=== PATIENT | male | born 1970 | race Caucasian/White ===

== ENCOUNTER 2019-02-26 22:16 | Inpatient (IN) | payer OTHER, MEDICAID ==
[~2019-02-26] VITALS: Ht 167.6 cm; Wt 90.3 kg
[2019-02-26] MEDS ORDERED: SODIUM CHLORIDE 0.9% 1,000 ML IV ONE (22:31)
[2019-02-26 23:13] LABS: CLARITY URINE CLEAR (CLEAR); COLOR URINE YELLOW (YELLOW); KETONES URINE NEGATIVE (NEGATIVE); LEUKOCYTE ESTERASE URINE NEGATIVE (NEGATIVE); NITRITE URINE NEGATIVE (NEGATIVE); OCCULT BLOOD URINE 1+ (NEGATIVE); PH URINE 5.5 (4.5-8.0); PROTEIN URINE 4+ (NEGATIVE); SPECIFIC GRAVITY URINE 1.017 (1.005-1.030); UROBILINOGEN URINE 0.2 E.U./dL (0.2-1.0)
[2019-02-26 23:36] LABS: BASOPHILS % 0.8 % (0.0-2.0); EOSINOPHILS % 5.2 % (0.0-5.0); HEMATOCRIT. 28.3 % (42.0-52.0); HEMOGLOBIN. 9.8 g/dL (14.0-18.0); LYMPHOCYTES % 30.9 % (20.0-50.0); MEAN CORPUSCULAR VOLUME 83.9 fL (80.0-94.0); MEAN PLATELET VOLUME 8.9 fl (7.4-10.4); MONOCYTES % 7.2 % (2.0-8.0); NEUTROPHILS % 55.9 % (40.0-76.0); PLATELET 221 x1000/uL (130-400); RED BLOOD CELL COUNT 3.37 mill/uL (4.7-6.1); RED CELL DISTRIBUTION WIDTH 13.8 % (11.6-14.6)
[2019-02-26 23:43] LABS: CHLORIDE 112 mEq/L (98-107)
[2019-02-26 23:46] LABS: ETHANOL BLOOD < 10 mg/dL
[2019-02-27] VITALS (11 sets, daily range): BP systolic 115–163; BP diastolic 54–88
[2019-02-27] MEDS ORDERED: ATROPINE SULFATE 1MG/10ML SYR IV ONE (01:45)
[2019-02-27] MEDS ORDERED: DEXTROSE 50% WATER 50ML SYRINGE IV PRN (05:15)
[2019-02-27] MEDS ORDERED: ATROPINE SULFATE 1MG/10ML SYR IV PRN (05:30)
[2019-02-27] MEDS: BLOOD SUGAR DIAGNOSTIC STRIP TEST SCH ×4 (06:02→21:23)
[2019-02-27 06:55] LABS: *AMPHETAMINES SCREEN URINE NEGATIVE (NEGATIVE); *BARBITURATES SCREEN URINE NEGATIVE (NEGATIVE); *BENZODIAZEPINES SCREEN URINE NEGATIVE (NEGATIVE); *COCAINE SCREEN URINE NEGATIVE (NEGATIVE); METHADONE URINE SCREEN NEGATIVE (NEGATIVE); OPIATES URINE SCREEN NEGATIVE (NEGATIVE); PHENCYCLIDINE URINE SCREEN NEGATIVE (NEGATIVE)
[2019-02-27 06:56] LABS: CANNABINOID URINE SCREEN NEGATIVE (NEGATIVE)
[2019-02-27] MEDS: INSULIN LISPRO 100 UNITS/ML SUBCUT SCH ×4 (07:20→21:00)
[2019-02-27] MEDS ORDERED: ASPI-1159 PO (08:17)
[2019-02-27] MEDS ORDERED: GLIM2TAB2 PO (08:18)
[2019-02-27] MEDS ORDERED: ATOR40TA70 PO (08:18)
[2019-02-27] MEDS ORDERED: HYDR25TA PO (08:19)
[2019-02-27] MEDS ORDERED: AMLO10TA80 PO (08:20)
[2019-02-27] MEDS ORDERED: GLIM4TAB2 PO (08:21)
[2019-02-27] MEDS ORDERED: PIOG15TA6 PO (08:22)
[2019-02-27] MEDS ORDERED: CHOL20004 PO (08:24)
[2019-02-27] MEDS ORDERED: ENOXAPARIN 40MG/0.4ML SYR SUBCUT SCH (09:00)
[2019-02-27] MEDS ORDERED: HYDRALAZINE 20MG/ML VIAL IV PRN (09:30)
[2019-02-27 12:13] LABS: T4 FREE 1.1 ng/dL (0.76-1.46)
[2019-02-27 13:29] LABS: CREATINE KINASE MB FRACTION 3.6 ng/mL (0.5-3.6)
[2019-02-28] VITALS (10 sets, daily range): BP systolic 116–162; BP diastolic 40–94
[2019-02-28 00:05] LABS: CREATINE KINASE MB FRACTION 2.6 ng/mL (0.5-3.6)
[2019-02-28] MEDS: BLOOD SUGAR DIAGNOSTIC STRIP TEST SCH ×4 (06:18→20:49)
[2019-02-28] MEDS: INSULIN LISPRO 100 UNITS/ML SUBCUT SCH ×4 (06:18→20:59)
[2019-02-28 06:20] LABS: CREATINE KINASE MB FRACTION 2.6 ng/mL (0.5-3.6)
[2019-02-28 06:24] LABS: BASOPHILS % 0.5 % (0.0-2.0); EOSINOPHILS % 4.9 % (0.0-5.0); HEMATOCRIT. 28.3 % (42.0-52.0); HEMOGLOBIN. 9.5 g/dL (14.0-18.0); LYMPHOCYTES % 41.7 % (20.0-50.0); MEAN CORPUSCULAR HEMOGLOBIN 28.6 pg (28.0-32.0); MEAN CORPUSCULAR VOLUME 84.9 fL (80.0-94.0); MEAN PLATELET VOLUME 9.1 fl (7.4-10.4); MONOCYTES % 7.4 % (2.0-8.0); NEUTROPHILS % 45.5 % (40.0-76.0); PLATELET 216 x1000/uL (130-400); RED BLOOD CELL COUNT 3.33 mill/uL (4.7-6.1); RED CELL DISTRIBUTION WIDTH 14.1 % (11.6-14.6)
[2019-02-28] MEDS ORDERED: CEFAZOLIN 1000MG PREMIX 50 ML IV ONE ×2 (07:16→07:27)
[2019-02-28] MEDS ORDERED: IODIXANOL 320MG/ML 100 ML BOTTLE IV ONE (07:42)
[2019-02-28] MEDS ORDERED: FENTANYL CITRATE/PF 50MCG/ML 2ML VIAL ONE (07:56)
[2019-02-28] MEDS ORDERED: MIDAZOLAM HCL 2 MG/2 ML VIAL ONE (07:56)
[2019-02-28] MEDS ORDERED: PROPOFOL 10MG/ML 100ML 100 ML IV ONE (07:58)
[2019-02-28] MEDS ORDERED: GENTAMICIN/NS IRRIGATION 500 ML IR ONE (08:02)
[2019-02-28] MEDS ORDERED: GENTAMICIN SULF 40MG/ML 2ML VIAL ONE (08:02)
[2019-02-28] MEDS ORDERED: LIDOCAINE HCL 1% 20ML VIAL (Pyxis) INJ ONE (08:02)
[2019-02-28] MEDS ORDERED: GLYCOPYRROLATE 0.2 MG/ML 2ML VIAL ONE (08:12)
[2019-02-28] MEDS ORDERED: FENTANYL CITRATE/PF 50MCG/ML 2ML VIAL IV PRN (08:45)
[2019-02-28] MEDS ORDERED: HYDROMORPHONE HCL/PF 2MG/ML CPJ IV PRN (08:45)
[2019-02-28] MEDS ORDERED: MEPERIDINE HCL/PF 25MG/ML CPJ IV PRN (08:45)
[2019-02-28] MEDS ORDERED: MORPHINE SULFATE 4 MG/ML CPJ (NOT FOR IM USE) IV PRN (08:45)
[2019-02-28] MEDS ORDERED: ONDANSETRON HCL 4MG/2ML INJ IV PRN (08:45)
[2019-02-28] MEDS ORDERED: FUROSEMIDE 20MG/2ML VIAL ONE (08:50)
[2019-02-28] MEDS ORDERED: HYDROCODONE/ACETAMINOPHEN 5/325MG TABLET PO PRN (09:30)
[2019-02-28] MEDS: HYDRALAZINE HCL 50MG TABLET PO SCH ×3 (12:55→22:06)
[2019-02-28] MEDS: METOPROLOL TARTRATE 25MG TABLET PO SCH (20:50)
[2019-02-28] MEDS: ACETAMINOPHEN 650MG/20.3ML UDC PO PRN (22:06)
[2019-03-01] VITALS (7 sets, daily range): BP systolic 127–157; BP diastolic 62–91
[2019-03-01] MEDS: HYDRALAZINE HCL 50MG TABLET PO SCH (05:32)
[2019-03-01] MEDS: ACETAMINOPHEN 650MG/20.3ML UDC PO PRN (05:32)
[2019-03-01] MEDS: BLOOD SUGAR DIAGNOSTIC STRIP TEST SCH ×2 (05:53→11:50)
[2019-03-01] MEDS: INSULIN LISPRO 100 UNITS/ML SUBCUT SCH ×2 (05:53→12:20)
[2019-03-01 07:10] LABS: BASOPHILS % 0.8 % (0.0-2.0); EOSINOPHILS % 5.6 % (0.0-5.0); HEMATOCRIT. 28.9 % (42.0-52.0); HEMOGLOBIN. 9.9 g/dL (14.0-18.0); LYMPHOCYTES % 32.5 % (20.0-50.0); MEAN CORPUSCULAR HEMOGLOBIN 28.6 pg (28.0-32.0); MEAN CORPUSCULAR VOLUME 83.5 fL (80.0-94.0); MEAN PLATELET VOLUME 9.4 fl (7.4-10.4); MONOCYTES % 7.7 % (2.0-8.0); NEUTROPHILS % 53.4 % (40.0-76.0); PLATELET 233 x1000/uL (130-400); RED BLOOD CELL COUNT 3.46 mill/uL (4.7-6.1); RED CELL DISTRIBUTION WIDTH 13.7 % (11.6-14.6)
[2019-03-01 08:01] LABS: PHOSPHORUS 4.4 mg/dL (2.5-4.9)
[2019-03-01] MEDS ORDERED: METO25TA6 PO (08:05)
[2019-03-01] MEDS: METOPROLOL TARTRATE 25MG TABLET PO SCH (08:07)
[2019-03-01] MEDS ORDERED: HYDR-4135 PO (08:08)
[2019-03-01 13:15] LABS: *CREATININE RANDOM URINE 76.4 mg/dL (Not Estab.); MICROALBUMIN RANDOM URINE 3116.2 ug/mL (Not Estab.)
== END 2019-03-01 12:15 | disposition home or self-care (01) | DRG 171 ==
LOC: ER 22:40 → 3WST 02-27 02:30 → ENRESERV 02-27 02:51
PROVIDERS: ADMIT Family Medicine; ATTEND Family Medicine
PROC: 02H63JZ Insertion of Pacemaker Lead into Right Atrium, Percutaneous Approach (ICD-10-PCS; principal; 2019-02-28)
PROC: 0JH606Z Insertion of Pacemaker, Dual Chamber into Chest Subcutaneous Tissue and Fascia, Open Approach (ICD-10-PCS; 2019-02-28)
PROC: 02HK3JZ Insertion of Pacemaker Lead into Right Ventricle, Percutaneous Approach (ICD-10-PCS; 2019-02-28)
PROC: B5171ZZ Fluoroscopy of Left Subclavian Vein using Low Osmolar Contrast (ICD-10-PCS; 2019-02-28)
DX: I44.2 Atrioventricular block, complete (principal); E11.21 Type 2 diabetes mellitus with diabetic nephropathy; N17.9 Acute kidney failure, unspecified; N18.4 Chronic kidney disease, stage 4 (severe); E11.40 Type 2 diabetes mellitus with diabetic neuropathy, unspecified; E11.319 Type 2 diabetes mellitus with unspecified diabetic retinopathy without macular edema; E11.22 Type 2 diabetes mellitus with diabetic chronic kidney disease; I13.10 Hypertensive heart and chronic kidney disease without heart failure, with stage 1 through stage 4 chronic kidney disease, or unspecified chronic kidney disease; H54.61 Unqualified visual loss, right eye, normal vision left eye; E83.51 Hypocalcemia; D63.8 Anemia in other chronic diseases classified elsewhere; E78.5 Hyperlipidemia, unspecified; E66.9 Obesity, unspecified; H40.9 Unspecified glaucoma; H43.13 Vitreous hemorrhage, bilateral; Z83.3 Family history of diabetes mellitus; Z90.49 Acquired absence of other specified parts of digestive tract; Z68.32 Body mass index [BMI] 32.0-32.9, adult; Z79.899 Other long term (current) drug therapy; Z79.82 Long term (current) use of aspirin
CPT/HCPCS: 33208; 36415; 71045; 75820; 76770; 80048; 80061; 80305; 80320; 82043; 82306; 82330; 82550; 82553; 82570; 82962; 83036; 83735; 83880; 83970; 84100; 84300; 84439; 84443; 84484; 85379; 93005; 93306; 93970; 99285; A4565; C1785; C1892; C1893; C1898; J0461; J0690; J1580; J1815; J1940; J2250; J2704; J3010; J3490; J7030; J7050; Q9967; G0480

== ENCOUNTER 2019-03-22 03:35 | Inpatient (IN) | payer MEDICAID ==
[~2019-03-22] VITALS: Ht 167.6 cm; Wt 90.0 kg
[~2019-03-22 03:35] MED LIST: ASPI-1159 PO; ATOR40TA70 PO; CHOL20004 PO; GLIM4TAB2 PO; HYDR-4135 PO; METO25TA6 PO
[2019-03-22] MEDS ORDERED: ONDANSETRON HCL 4MG/2ML INJ IV STA (04:12)
[2019-03-22] MEDS ORDERED: MORPHINE SULFATE 4 MG/ML CPJ (NOT FOR IM USE) IV STA (04:12)
[2019-03-22] MEDS ORDERED: NITROGLYCERIN OINT 1GM/INCH UDPKT TD ONE (04:15)
[2019-03-22 04:37] LABS: BASOPHILS % 1.3 % (0.0-2.0); EOSINOPHILS % 7.5 % (0.0-5.0); HEMATOCRIT. 32.6 % (42.0-52.0); HEMOGLOBIN. 11.1 g/dL (14.0-18.0); MEAN CORPUSCULAR HEMOGLOBIN 29.2 pg (28.0-32.0); MEAN CORPUSCULAR VOLUME 85.5 fL (80.0-94.0); MEAN PLATELET VOLUME 8.8 fl (7.4-10.4); MONOCYTES % 8.2 % (2.0-8.0); PLATELET 231 x1000/uL (130-400); RED BLOOD CELL COUNT 3.81 mill/uL (4.7-6.1); RED CELL DISTRIBUTION WIDTH 13.8 % (11.6-14.6)
[2019-03-22 04:44] LABS: CHLORIDE 116 mEq/L (98-107)
[2019-03-22 08:00] VITALS: BP 178/89
[2019-03-22] MEDS ORDERED: ONDANSETRON HCL 4MG/2ML INJ IV PRN (08:15)
[2019-03-22] MEDS ORDERED: DOCUSATE SODIUM 100MG CAPSULE PO PRN (08:15)
[2019-03-22] MEDS ORDERED: CLONIDINE 0.1MG TABLET PO PRN (08:15)
[2019-03-22] MEDS ORDERED: MORPHINE SULFATE 2 MG/ML CPJ (NOT FOR IM USE) IV PRN (08:15)
[2019-03-22] MEDS ORDERED: ACETAMINOPHEN 325MG TABLET PO PRN (08:15)
[2019-03-22] MEDS ORDERED: ENOXAPARIN 40MG/0.4ML SYR SUBCUT SCH (08:15)
[2019-03-22] MEDS ORDERED: GUAIFENESIN 200MG/10ML SUGAR FREE UDC PO PRN (08:15)
[2019-03-22] MEDS ORDERED: HYDROCODONE/ACETAMINOPHEN 5/325MG TABLET PO PRN (08:15)
[2019-03-22] MEDS: AMLODIPINE 10MG TABLET PO SCH (08:40)
[2019-03-22 10:35] VITALS: BP 178/82
[2019-03-22] MEDS: ENOXAPARIN 40MG/0.4ML SYR SUBCUT SCH (11:37)
[2019-03-22] MEDS: LISINOPRIL 10MG TABLET PO SCH (11:37)
[2019-03-22 12:00] VITALS: BP 170/94
[2019-03-22] MEDS: INSULIN LISPRO 100 UNITS/ML SUBCUT SCH ×3 (12:15→20:59)
[2019-03-22] MEDS ORDERED: DEXTROSE 50% WATER 50ML SYRINGE IV PRN (12:15)
[2019-03-22] MEDS: BLOOD SUGAR DIAGNOSTIC STRIP TEST SCH ×3 (13:00→20:55)
[2019-03-22 13:20] LABS: T4 FREE 1.09 ng/dL (0.76-1.46)
[2019-03-22 16:00] VITALS: BP 179/98
[2019-03-22 20:00] VITALS: BP 151/84
[2019-03-22 22:05] LABS: CREATINE KINASE MB FRACTION 2.4 ng/mL (0.5-3.6)
[2019-03-23] VITALS: BP 120/63
[2019-03-23 04:00] VITALS: BP 149/85
[2019-03-23] MEDS: INSULIN LISPRO 100 UNITS/ML SUBCUT SCH ×2 (06:43→12:15)
[2019-03-23] MEDS: BLOOD SUGAR DIAGNOSTIC STRIP TEST SCH ×2 (06:43→11:45)
[2019-03-23 07:31] LABS: BASOPHILS % 0.9 % (0.0-2.0); EOSINOPHILS % 6.2 % (0.0-5.0); HEMATOCRIT. 31.2 % (42.0-52.0); HEMOGLOBIN. 10.5 g/dL (14.0-18.0); LYMPHOCYTES % 32.6 % (20.0-50.0); MEAN CORPUSCULAR HEMOGLOBIN 28.7 pg (28.0-32.0); MEAN CORPUSCULAR VOLUME 85.5 fL (80.0-94.0); MEAN PLATELET VOLUME 9.2 fl (7.4-10.4); MONOCYTES % 6.9 % (2.0-8.0); NEUTROPHILS % 53.4 % (40.0-76.0); PLATELET 228 x1000/uL (130-400); RED BLOOD CELL COUNT 3.64 mill/uL (4.7-6.1); RED CELL DISTRIBUTION WIDTH 13.7 % (11.6-14.6)
[2019-03-23 07:36] LABS: CHLORIDE 117 mEq/L (98-107)
[2019-03-23 07:53] LABS: CREATINE KINASE 115 IU/L (39-308); HDL CHOLESTEROL 40 mg/dL (40-59)
[2019-03-23 07:55] LABS: LDL CHOLESTEROL 93 mg/dL (5-100)
[2019-03-23 08:00] VITALS: BP 124/79
[2019-03-23] MEDS: AMLODIPINE 10MG TABLET PO SCH (09:00)
[2019-03-23] MEDS: ENOXAPARIN 40MG/0.4ML SYR SUBCUT SCH (09:02)
[2019-03-23] MEDS: LISINOPRIL 10MG TABLET PO SCH (09:03)
[2019-03-23 09:25] LABS: *AMPHETAMINES SCREEN URINE NEGATIVE (NEGATIVE); *BARBITURATES SCREEN URINE NEGATIVE (NEGATIVE); CANNABINOID URINE SCREEN NEGATIVE (NEGATIVE); PHENCYCLIDINE URINE SCREEN NEGATIVE (NEGATIVE)
[2019-03-23 09:26] LABS: *BENZODIAZEPINES SCREEN URINE NEGATIVE (NEGATIVE); *COCAINE SCREEN URINE NEGATIVE (NEGATIVE); METHADONE URINE SCREEN NEGATIVE (NEGATIVE); OPIATES URINE SCREEN PRESUMTIVE POSITIVE (NEGATIVE)
[2019-03-23] MEDS ORDERED: REGADENOSON 0.4 MG/5 ML IV NR (09:45)
[2019-03-23] MEDS ORDERED: REGADENOSON 0.4 MG/5 ML IV ONE (10:57)
[2019-03-23 12:00] VITALS: BP 180/106
[2019-03-23] MEDS ORDERED: FUROSEMIDE 40MG/4ML VIAL IVP NR (13:00)
[2019-03-23 15:48] VITALS: BP 148/84
[2019-03-23 16:00] VITALS: BP 148/84
== END 2019-03-23 16:40 | disposition home or self-care (01) | DRG 133 ==
LOC: ER 03:35 → 5WST 05:31 → EDBEDREQTM 05:36 → EDBEDREQ 05:36 → SUPCPDRO 08:00 → ENRESERV 09:52
PROVIDERS: ADMIT Hospitalist; ATTEND Hospitalist
DX: J96.00 Acute respiratory failure, unspecified whether with hypoxia or hypercapnia (principal); I44.2 Atrioventricular block, complete; E11.22 Type 2 diabetes mellitus with diabetic chronic kidney disease; E11.42 Type 2 diabetes mellitus with diabetic polyneuropathy; E11.319 Type 2 diabetes mellitus with unspecified diabetic retinopathy without macular edema; R07.89 Other chest pain; E78.00 Pure hypercholesterolemia, unspecified; E78.5 Hyperlipidemia, unspecified; H54.61 Unqualified visual loss, right eye, normal vision left eye; I50.9 Heart failure, unspecified; K21.9 Gastro-esophageal reflux disease without esophagitis; I13.0 Hypertensive heart and chronic kidney disease with heart failure and stage 1 through stage 4 chronic kidney disease, or unspecified chronic kidney disease; N18.9 Chronic kidney disease, unspecified; Z95.0 Presence of cardiac pacemaker
CPT/HCPCS: 36415; 71045; 71250; 78452; 80061; 80305; 82550; 82553; 82962; 83036; 83880; 84439; 84443; 84484; 85379; 93005; 93017; 93306; 93970; 96374; 96375; 99285; A9500; J1650; J1815; J1940; J2270; J2405; J2785

== ENCOUNTER 2019-04-04 04:44 | Inpatient (IN) | payer MEDICAID, OTHER ==
[~2019-04-04] VITALS: Ht 167.6 cm; Wt 88.5 kg
[~2019-04-04 04:44] MED LIST changes: -ASPI-1159 PO; +ASPI-1393 PO
[2019-04-04] MEDS ORDERED: NITROGLYCERIN OINT 1GM/INCH UDPKT TD ONE (05:30)
[2019-04-04] MEDS ORDERED: ASPIRIN 81MG TABLET PO ONE (05:30)
[2019-04-04 05:38] LABS: BASOPHILS % 1.8 % (0.0-2.0); EOSINOPHILS % 12.2 % (0.0-5.0); HEMATOCRIT. 31.7 % (42.0-52.0); HEMOGLOBIN. 10.5 g/dL (14.0-18.0); LYMPHOCYTES % 26.2 % (20.0-50.0); MEAN CORPUSCULAR HEMOGLOBIN 28.7 pg (28.0-32.0); MEAN CORPUSCULAR VOLUME 86.8 fL (80.0-94.0); MEAN PLATELET VOLUME 9.8 fl (7.4-10.4); MONOCYTES % 8.1 % (2.0-8.0); NEUTROPHILS % 51.7 % (40.0-76.0); PLATELET 182 x1000/uL (130-400); RED BLOOD CELL COUNT 3.66 mill/uL (4.7-6.1); RED CELL DISTRIBUTION WIDTH 14.1 % (11.6-14.6)
[2019-04-04 05:40] LABS: CHLORIDE 114 mEq/L (98-107)
[2019-04-04] MEDS ORDERED: ONDANSETRON HCL 4MG/2ML INJ IV PRN (09:00)
[2019-04-04] MEDS ORDERED: IPRATROPIUM/ALBUTEROL 0.5-3(2.5)MG/3ML NEB INH PRN (09:00)
[2019-04-04] MEDS ORDERED: KETOROLAC 15MG/ML VIAL IV PRN (09:00)
[2019-04-04] MEDS ORDERED: CLONIDINE 0.1MG TABLET PO PRN (09:00)
[2019-04-04] MEDS ORDERED: DOCUSATE SODIUM 100MG CAPSULE PO PRN (09:00)
[2019-04-04] MEDS ORDERED: MAGNESIUM/ALUMINUM HYDROXIDE/SIMETHICONE 30ML UDC PO PRN (09:00)
[2019-04-04] MEDS ORDERED: GUAIFENESIN 200MG/10ML SUGAR FREE UDC PO PRN (09:00)
[2019-04-04] MEDS ORDERED: ACETAMINOPHEN 325MG TABLET PO PRN (09:00)
[2019-04-04] MEDS ORDERED: NITROGLYCERIN 0.4MG TABLET SL SL PRN (09:00)
[2019-04-04] MEDS ORDERED: DEXTROSE 50% WATER 50ML SYRINGE IV PRN (09:00)
[2019-04-04 09:13] LABS: ETHANOL BLOOD < 10 mg/dL
[2019-04-04 09:15] LABS: LDL CHOLESTEROL 92 mg/dL (5-100)
[2019-04-04 09:18] LABS: HDL CHOLESTEROL 50 mg/dL (40-59)
[2019-04-04] MEDS: FAMOTIDINE 20MG TABLET PO SCH (10:28)
[2019-04-04] MEDS: LISINOPRIL 20MG TABLET PO SCH ×2 (10:28→20:46)
[2019-04-04] MEDS: FUROSEMIDE 40MG/4ML VIAL IVP SCH ×2 (10:30→20:41)
[2019-04-04 10:31] LABS: *AMPHETAMINES SCREEN URINE NEGATIVE (NEGATIVE); *BARBITURATES SCREEN URINE NEGATIVE (NEGATIVE); *BENZODIAZEPINES SCREEN URINE NEGATIVE (NEGATIVE); *COCAINE SCREEN URINE NEGATIVE (NEGATIVE); CANNABINOID URINE SCREEN NEGATIVE (NEGATIVE); METHADONE URINE SCREEN NEGATIVE (NEGATIVE); OPIATES URINE SCREEN NEGATIVE (NEGATIVE)
[2019-04-04 10:34] LABS: PHENCYCLIDINE URINE SCREEN NEGATIVE (NEGATIVE)
[2019-04-04] MEDS: ENOXAPARIN 40MG/0.4ML SYR SUBCUT SCH (10:34)
[2019-04-04] MEDS: GUAIFENESIN/DM 600MG/30MG ER TAB 12HR PO SCH ×2 (11:07→20:42)
[2019-04-04] MEDS: SPIRONOLACTONE 25MG TABLET PO SCH ×2 (11:07→23:19)
[2019-04-04] MEDS: BLOOD SUGAR DIAGNOSTIC STRIP TEST SCH ×3 (11:54→20:43)
[2019-04-04 13:15] VITALS: BP 169/87
[2019-04-04] MEDS: INSULIN LISPRO 100 UNITS/ML SUBCUT SCH ×3 (13:20→20:43)
[2019-04-04 15:24] LABS: CREATINE KINASE MB FRACTION 3.1 ng/mL (0.5-3.6)
[2019-04-04 15:35] VITALS: BP 169/87
[2019-04-04 16:00] VITALS: BP 152/79
[2019-04-04] MEDS: HYDRALAZINE HCL 50MG TABLET PO SCH ×2 (16:14→22:00)
[2019-04-04 20:00] VITALS: BP 108/55
[2019-04-04] MEDS ORDERED: ATORVASTATIN CALCIUM 40MG TABLET PO SCH (21:00)
[2019-04-04] MEDS ORDERED: ZOLPIDEM TARTRATE 5MG TABLET PO PRN (21:00)
[2019-04-05] VITALS: BP 137/82
[2019-04-05 04:00] VITALS: BP 139/76
[2019-04-05] MEDS: HYDRALAZINE HCL 50MG TABLET PO SCH (06:00)
[2019-04-05] MEDS: INSULIN LISPRO 100 UNITS/ML SUBCUT SCH (06:45)
[2019-04-05] MEDS: BLOOD SUGAR DIAGNOSTIC STRIP TEST SCH (06:45)
[2019-04-05 08:25] VITALS: BP 125/73
[2019-04-05] MEDS: FAMOTIDINE 20MG TABLET PO SCH (09:06)
[2019-04-05] MEDS: GUAIFENESIN/DM 600MG/30MG ER TAB 12HR PO SCH (09:06)
[2019-04-05] MEDS: SPIRONOLACTONE 25MG TABLET PO SCH (09:09)
[2019-04-05] MEDS: FUROSEMIDE 40MG/4ML VIAL IVP SCH (09:10)
[2019-04-05] MEDS: ENOXAPARIN 40MG/0.4ML SYR SUBCUT SCH (09:10)
[2019-04-05] MEDS: LISINOPRIL 20MG TABLET PO SCH (09:12)
[2019-04-05 09:40] LABS: CHLORIDE 113 mEq/L (98-107)
[2019-04-05 09:53] LABS: CREATINE KINASE MB FRACTION 1.5 ng/mL (0.5-3.6)
[2019-04-05 10:06] LABS: CREATINE KINASE 74 IU/L (39-308)
[2019-04-05] MEDS ORDERED: FURO-151 MT (11:26)
[2019-04-05 11:27] VITALS: BP 143/85
[2019-04-05 12:00] VITALS: BP 129/67
== END 2019-04-05 12:30 | disposition home or self-care (01) | DRG 194 ==
LOC: ER 04:44 → 8WST 06:33 → EDBEDREQ 06:39 → EDBEDREQTM 06:39 → ENRESERV 11:27
PROVIDERS: ADMIT Internal Medicine; ATTEND Internal Medicine
DX: I11.0 Hypertensive heart disease with heart failure (principal); J96.00 Acute respiratory failure, unspecified whether with hypoxia or hypercapnia; N17.0 Acute kidney failure with tubular necrosis; E44.1 Mild protein-calorie malnutrition; E83.51 Hypocalcemia; D63.8 Anemia in other chronic diseases classified elsewhere; E11.9 Type 2 diabetes mellitus without complications; I50.43 Acute on chronic combined systolic (congestive) and diastolic (congestive) heart failure; E78.00 Pure hypercholesterolemia, unspecified; F10.21 Alcohol dependence, in remission; Z95.810 Presence of automatic (implantable) cardiac defibrillator; Z68.31 Body mass index [BMI] 31.0-31.9, adult; Z79.82 Long term (current) use of aspirin
CPT/HCPCS: 36415; 71045; 80048; 80061; 80305; 80320; 82550; 82553; 82962; 83036; 83880; 84484; 93005; 93970; 96372; 99285; J1650; J1815; J1940; G0480

== ENCOUNTER 2019-06-16 23:34 | Inpatient (IN) | payer MEDICAID ==
[~2019-06-16] VITALS: Ht 165.1 cm; Wt 84.4 kg
[~2019-06-16 23:34] MED LIST changes: +FURO-151 MT
[2019-06-16] MEDS ORDERED: VISCOUS LIDOCAINE 2% 15 ML UDC MM STA (23:48)
[2019-06-17] MEDS ORDERED: ASPIRIN 81MG TABLET PO ONE (00:15)
[2019-06-17 00:36] LABS: BASOPHILS % 0.6 % (0.0-2.0); EOSINOPHILS % 3.1 % (0.0-5.0); HEMATOCRIT. 33.4 % (42.0-52.0); HEMOGLOBIN. 11.6 g/dL (14.0-18.0); LYMPHOCYTES % 23.3 % (20.0-50.0); MEAN CORPUSCULAR HEMOGLOBIN 28.5 pg (28.0-32.0); MEAN CORPUSCULAR VOLUME 82.1 fL (80.0-94.0); MEAN PLATELET VOLUME 8.7 fl (7.4-10.4); MONOCYTES % 6.1 % (2.0-8.0); NEUTROPHILS % 66.9 % (40.0-76.0); PLATELET 209 x1000/uL (130-400); RED BLOOD CELL COUNT 4.07 mill/uL (4.7-6.1); RED CELL DISTRIBUTION WIDTH 13.4 % (11.6-14.6)
[2019-06-17 00:47] LABS: CHLORIDE 106 mEq/L (98-107)
[2019-06-17] MEDS ORDERED: ONDANSETRON HCL 4MG/2ML INJ IV PRN (08:15)
[2019-06-17] MEDS ORDERED: ACETAMINOPHEN 325MG TABLET PO PRN (08:15)
[2019-06-17] MEDS ORDERED: IPRATROPIUM/ALBUTEROL 0.5-3(2.5)MG/3ML NEB HHN PRN (08:15)
[2019-06-17] MEDS: ASPIRIN 81MG TABLET PO SCH (09:27)
[2019-06-17] MEDS: CLONIDINE 0.1MG TABLET PO PRN (09:27)
[2019-06-17 09:55] LABS: CLARITY URINE CLEAR (CLEAR); COLOR URINE YELLOW (YELLOW); KETONES URINE NEGATIVE (NEGATIVE); LEUKOCYTE ESTERASE URINE NEGATIVE (NEGATIVE); NITRITE URINE NEGATIVE (NEGATIVE); OCCULT BLOOD URINE NEGATIVE (NEGATIVE); PH URINE 5.5 (4.5-8.0); PROTEIN URINE 3+ (NEGATIVE); SPECIFIC GRAVITY URINE 1.012 (1.005-1.030); UROBILINOGEN URINE 0.2 E.U./dL (0.2-1.0)
[2019-06-17 10:08] LABS: *AMPHETAMINES SCREEN URINE NEGATIVE (NEGATIVE); CANNABINOID URINE SCREEN NEGATIVE (NEGATIVE); PHENCYCLIDINE URINE SCREEN NEGATIVE (NEGATIVE)
[2019-06-17 10:09] LABS: *BARBITURATES SCREEN URINE NEGATIVE (NEGATIVE); *BENZODIAZEPINES SCREEN URINE NEGATIVE (NEGATIVE); *COCAINE SCREEN URINE NEGATIVE (NEGATIVE); METHADONE URINE SCREEN NEGATIVE (NEGATIVE); OPIATES URINE SCREEN NEGATIVE (NEGATIVE)
[2019-06-17] MEDS ORDERED: AMLODIPINE 5MG TABLET PO SCH (13:45)
[2019-06-17 13:56] VITALS: BP 175/86
[2019-06-17 16:00] VITALS: BP 125/80
[2019-06-17] MEDS: NEOMY SULF/BACITRAC ZN/POLY OINT 28GM TOP SCH (17:50)
[2019-06-17 20:00] VITALS: BP 152/98
[2019-06-17] MEDS: AMLODIPINE 5MG TABLET PO SCH (21:21)
[2019-06-17] MEDS: METOPROLOL TARTRATE 50MG TABLET PO SCH (21:21)
[2019-06-17] MEDS ORDERED: DEXTROSE 50% WATER 50ML SYRINGE IV PRN (23:30)
[2019-06-18] VITALS: BP 124/78
[2019-06-18 05:46] VITALS: BP 135/78
[2019-06-18] MEDS: BLOOD SUGAR DIAGNOSTIC STRIP TEST SCH ×4 (06:21→21:01)
[2019-06-18] MEDS: INSULIN LISPRO 100 UNITS/ML SUBCUT SCH ×4 (06:29→21:27)
[2019-06-18 08:00] VITALS: BP 138/83
[2019-06-18 08:59] LABS: BASOPHILS % 1.1 % (0.0-2.0); EOSINOPHILS % 6.1 % (0.0-5.0); HEMOGLOBIN. 11.1 g/dL (14.0-18.0); MEAN CORPUSCULAR HEMOGLOBIN 28.6 pg (28.0-32.0); MEAN CORPUSCULAR VOLUME 82.1 fL (80.0-94.0); MEAN PLATELET VOLUME 8.6 fl (7.4-10.4); MONOCYTES % 7.3 % (2.0-8.0); NEUTROPHILS % 45.5 % (40.0-76.0); PLATELET 207 x1000/uL (130-400); RED BLOOD CELL COUNT 3.89 mill/uL (4.7-6.1); RED CELL DISTRIBUTION WIDTH 13.3 % (11.6-14.6)
[2019-06-18] MEDS: AMLODIPINE 5MG TABLET PO SCH ×2 (09:04→21:01)
[2019-06-18] MEDS: NEOMY SULF/BACITRAC ZN/POLY OINT 28GM TOP SCH (09:05)
[2019-06-18] MEDS: METOPROLOL TARTRATE 50MG TABLET PO SCH ×2 (09:05→21:01)
[2019-06-18] MEDS: ASPIRIN 81MG TABLET PO SCH (09:05)
[2019-06-18 12:00] VITALS: BP 140/86
[2019-06-18 16:00] VITALS: BP 151/86
[2019-06-18 20:00] VITALS: BP 157/86
[2019-06-19] VITALS (7 sets, daily range): BP systolic 138–164; BP diastolic 83–89
[2019-06-19] MEDS: BLOOD SUGAR DIAGNOSTIC STRIP TEST SCH ×3 (07:00→16:52)
[2019-06-19] MEDS: INSULIN LISPRO 100 UNITS/ML SUBCUT SCH ×3 (07:00→16:58)
[2019-06-19] MEDS: NEOMY SULF/BACITRAC ZN/POLY OINT 28GM TOP SCH (09:16)
[2019-06-19] MEDS: METOPROLOL TARTRATE 50MG TABLET PO SCH (09:16)
[2019-06-19] MEDS: AMLODIPINE 5MG TABLET PO SCH (09:16)
[2019-06-19] MEDS: ASPIRIN 81MG TABLET PO SCH (09:16)
[2019-06-19] MEDS: CLONIDINE 0.1MG TABLET PO PRN (19:21)
== END 2019-06-19 19:50 | disposition home or self-care (01) | DRG 361 ==
LOC: ER 23:34 → 5WST 06-17 02:48 → EDBEDREQ 06-17 02:51 → EDBEDREQTM 06-17 02:51 → ENRESERV 06-17 12:08
PROVIDERS: ADMIT Internal Medicine; ATTEND Internal Medicine
PROC: 0HBMXZZ Excision of Right Foot Skin, External Approach (ICD-10-PCS; principal; 2019-06-17)
DX: E11.621 Type 2 diabetes mellitus with foot ulcer (principal); L97.519 Non-pressure chronic ulcer of other part of right foot with unspecified severity; E11.22 Type 2 diabetes mellitus with diabetic chronic kidney disease; E11.42 Type 2 diabetes mellitus with diabetic polyneuropathy; J68.0 Bronchitis and pneumonitis due to chemicals, gases, fumes and vapors; I25.10 Atherosclerotic heart disease of native coronary artery without angina pectoris; D64.9 Anemia, unspecified; D72.829 Elevated white blood cell count, unspecified; E11.319 Type 2 diabetes mellitus with unspecified diabetic retinopathy without macular edema; E44.1 Mild protein-calorie malnutrition; E66.9 Obesity, unspecified; E78.00 Pure hypercholesterolemia, unspecified; E78.5 Hyperlipidemia, unspecified; I12.9 Hypertensive chronic kidney disease with stage 1 through stage 4 chronic kidney disease, or unspecified chronic kidney disease; N18.4 Chronic kidney disease, stage 4 (severe); Z83.3 Family history of diabetes mellitus; Z90.49 Acquired absence of other specified parts of digestive tract; Z95.0 Presence of cardiac pacemaker; Z68.31 Body mass index [BMI] 31.0-31.9, adult; Z79.82 Long term (current) use of aspirin
CPT/HCPCS: 36415; 71045; 80048; 80305; 81003; 82962; 83880; 84484; 93005; 99285; J1815

== ENCOUNTER 2019-08-19 02:02 | Emergency (ER) | payer MEDICAID ==
[~2019-08-19] VITALS: Ht 167.6 cm; Wt 87.0 kg
[2019-08-19] MEDS ORDERED: VISCOUS LIDOCAINE 2% 15 ML UDC MM STA (02:47)
[2019-08-19] MEDS ORDERED: MAGNESIUM/ALUMINUM HYDROXIDE/SIMETHICONE 30ML UDC PO ONE (03:00)
[2019-08-19 04:00] VITALS: BP 142/94
== END 2019-08-19 04:30 | disposition home or self-care (01) ==
LOC: ER 02:02
DX: J06.9 Acute upper respiratory infection, unspecified (principal); R07.89 Other chest pain; R05 Cough; E11.9 Type 2 diabetes mellitus without complications; E78.00 Pure hypercholesterolemia, unspecified; I11.9 Hypertensive heart disease without heart failure; N28.9 Disorder of kidney and ureter, unspecified; Z90.49 Acquired absence of other specified parts of digestive tract; Z95.0 Presence of cardiac pacemaker; Z79.82 Long term (current) use of aspirin
CPT/HCPCS: 71045; 93005; 99283

== ENCOUNTER 2020-04-09 18:00 | Emergency (ER) | payer MEDICAID ==
[~2020-04-09] VITALS: Ht 165.1 cm; Wt 90.0 kg
[~2020-04-09 18:00] MED LIST changes: -ASPI-1393 PO; +ASPI-1497 PO; -GLIM4TAB2 PO; +GLIM4TAB36 PO
[2020-04-09] MEDS ORDERED: ONDANSETRON HCL 4MG/2ML INJ IV ONE (18:30)
[2020-04-09] MEDS ORDERED: CLONIDINE 0.2MG TABLET PO ONE (18:30)
[2020-04-09] MEDS ORDERED: SODIUM CHLORIDE 0.9% 500 ML IV ONE (18:30)
[2020-04-09 19:53] LABS: BASOPHILS % 0.9 % (0.0-2.0); EOSINOPHILS % 2.2 % (0.0-5.0); HEMATOCRIT. 29.7 % (42.0-52.0); HEMOGLOBIN. 10.3 g/dL (14.0-18.0); LYMPHOCYTES % 18.5 % (20.0-50.0); MEAN CORPUSCULAR HEMOGLOBIN 29.2 pg (28.0-32.0); MEAN CORPUSCULAR VOLUME 84.6 fL (80.0-94.0); MEAN PLATELET VOLUME 8.5 fl (7.4-10.4); MONOCYTES % 6.8 % (2.0-8.0); NEUTROPHILS % 71.6 % (40.0-76.0); PLATELET 404 x1000/uL (130-400); RED BLOOD CELL COUNT 3.52 mill/uL (4.7-6.1); RED CELL DISTRIBUTION WIDTH 12.9 % (11.6-14.6)
[2020-04-09 20:02] LABS: CHLORIDE 110 mEq/L (98-107)
[2020-04-09 22:34] VITALS: BP 152/92
== END 2020-04-09 23:21 | disposition home or self-care (01) ==
LOC: ER 18:00 → CANBEDREQ 04-10 01:50
DX: J06.9 Acute upper respiratory infection, unspecified (principal); Z20.828 Contact with and (suspected) exposure to other viral communicable diseases; E11.9 Type 2 diabetes mellitus without complications; E78.00 Pure hypercholesterolemia, unspecified; I11.9 Hypertensive heart disease without heart failure; Z90.49 Acquired absence of other specified parts of digestive tract; Z95.0 Presence of cardiac pacemaker; Z79.899 Other long term (current) drug therapy; Z79.82 Long term (current) use of aspirin
CPT/HCPCS: 36415; 71045; 80053; 83880; 84484; 85025; 93005; 99285; J7040; U0003; J2405

== ENCOUNTER 2021-08-07 11:21 | Inpatient (IN) | payer MEDICAID ==
[~2021-08-07] VITALS: Ht 165.1 cm; Wt 86.6 kg
[2021-08-07 13:11] LABS: BASOPHILS % 0.9 % (0.0-2.0); EOSINOPHILS % 6.4 % (0.0-5.0); HEMATOCRIT. 35.8 % (42.0-52.0); MEAN CORPUSCULAR HEMOGLOBIN 29.6 pg (28.0-32.0); MEAN CORPUSCULAR VOLUME 87.8 fL (80.0-94.0); MONOCYTES % 6.6 % (2.0-8.0); NEUTROPHILS % 54.1 % (40.0-76.0); PLATELET 233 x1000/uL (130-400); RED BLOOD CELL COUNT 4.08 mill/uL (4.7-6.1); RED CELL DISTRIBUTION WIDTH 14.2 % (11.6-14.6)
[2021-08-07 13:13] LABS: CHLORIDE 112 mEq/L (98-107)
[2021-08-07 13:23] LABS: PARTIAL THROMBOPLASTIN TIME 25.6 sec (23.4-31.0); PROTHROMBIN TIME 10.3 sec (9.6-11.0)
[2021-08-07] MEDS ORDERED: LABETALOL HCL 20MG/4ML CARPUJECT IV ONE (14:00)
[2021-08-07] MEDS ORDERED: FUROSEMIDE 40MG/4ML VIAL IVP NR (14:00)
[2021-08-07] MEDS ORDERED: HYDRALAZINE 20MG/ML VIAL IV ONE (14:00)
[2021-08-07] MEDS ORDERED: LORAZEPAM 2MG/ML CPJ IV PRN (14:15)
[2021-08-07] MEDS: AMLODIPINE 10MG TABLET PO SCH (14:15)
[2021-08-07] MEDS ORDERED: CLONIDINE 0.1MG TABLET PO PRN (14:15)
[2021-08-07] MEDS ORDERED: DOCUSATE SODIUM 100MG CAPSULE PO PRN (14:15)
[2021-08-07] MEDS ORDERED: HYDROCODONE/ACETAMINOPHEN 5/325MG TABLET PO PRN (14:15)
[2021-08-07] MEDS ORDERED: ONDANSETRON HCL 4MG/2ML INJ IV PRN (14:15)
[2021-08-07] MEDS ORDERED: ACETAMINOPHEN 650MG/20.3ML UDC GT PRN (14:15)
[2021-08-07] MEDS ORDERED: LABETALOL 5MG/ML SYR 20 MG/4 ML SYRINGE IV NR (14:30)
[2021-08-07] MEDS: METOPROLOL TARTRATE 25MG TABLET PO SCH ×2 (14:30→22:02)
[2021-08-07] MEDS ORDERED: NALOXONE HCL 0.4MG/ML VIAL IV PRN (14:30)
[2021-08-07] MEDS: CLONIDINE 0.1MG TABLET PO SCH ×2 (15:30→22:02)
[2021-08-07] MEDS: THIAMINE HCL 100MG TABLET PO SCH (15:31)
[2021-08-07] MEDS: ENOXAPARIN 30MG/0.3ML SYR SUBCUT SCH (15:31)
[2021-08-07 17:21] LABS: HEPATITIS B SURFACE AB < 3.1 mIU/mL
[2021-08-07 17:32] LABS: HEPATITIS B SURFACE ANTIGEN NEGATIVE
[2021-08-07 21:15] VITALS: BP 189/95
[2021-08-08] VITALS (18 sets, daily range): BP systolic 126–193; BP diastolic 67–123
[2021-08-08] MEDS ORDERED: CEFAZOLIN 1000MG PREMIX 50 ML IV ONE ×2 (06:30→07:16)
[2021-08-08 06:55] LABS: EOSINOPHILS % 6.2 % (0.0-5.0); HEMATOCRIT. 29.8 % (42.0-52.0); HEMOGLOBIN. 10.3 g/dL (14.0-18.0); LYMPHOCYTES % 39.8 % (20.0-50.0); MEAN CORPUSCULAR HEMOGLOBIN 30.3 pg (28.0-32.0); MEAN CORPUSCULAR VOLUME 87.7 fL (80.0-94.0); MEAN PLATELET VOLUME 9.3 fl (7.4-10.4); MONOCYTES % 6.8 % (2.0-8.0); NEUTROPHILS % 46.2 % (40.0-76.0); PLATELET 207 x1000/uL (130-400); RED CELL DISTRIBUTION WIDTH 13.7 % (11.6-14.6)
[2021-08-08 07:06] LABS: PROTHROMBIN TIME 10.7 sec (9.6-11.0)
[2021-08-08] MEDS ORDERED: LIDOCAINE HCL 1% 30ML VIAL (10MG/ML) ONE (07:17)
[2021-08-08] MEDS ORDERED: FENTANYL CITRATE/PF 50MCG/ML 2ML VIAL ONE (07:17)
[2021-08-08 07:18] LABS: PHOSPHORUS 4.6 mg/dL (2.5-4.9)
[2021-08-08] MEDS ORDERED: FENTANYL CITRATE/PF 50MCG/ML 2ML VIAL IV ONE (08:15)
[2021-08-08] MEDS: THIAMINE HCL 100MG TABLET PO SCH (08:47)
[2021-08-08] MEDS: METOPROLOL TARTRATE 25MG TABLET PO SCH ×2 (08:47→18:34)
[2021-08-08] MEDS: CLONIDINE 0.1MG TABLET PO SCH (08:47)
[2021-08-08] MEDS: AMLODIPINE 10MG TABLET PO SCH (08:47)
[2021-08-08 10:37] LABS: CLARITY URINE CLEAR (CLEAR); COLOR URINE YELLOW (YELLOW); KETONES URINE NEGATIVE (NEGATIVE); LEUKOCYTE ESTERASE URINE NEGATIVE (NEGATIVE); NITRITE URINE NEGATIVE (NEGATIVE); OCCULT BLOOD URINE TRACE (NEGATIVE); PROTEIN URINE 4+ (NEGATIVE); SPECIFIC GRAVITY URINE 1.013 (1.005-1.030); UROBILINOGEN URINE 0.2 E.U./dL (0.2-1.0)
[2021-08-08] MEDS: ENOXAPARIN 30MG/0.3ML SYR SUBCUT SCH (14:18)
[2021-08-08] MEDS: CLONIDINE 0.2MG TABLET PO SCH (21:13)
[2021-08-09] VITALS: BP_SYST 142; BP_SYST 143; BP_DIAS 76; BP_DIAS 77
[2021-08-09 04:00] VITALS: BP 139/75
[2021-08-09] MEDS ORDERED: DEXTROSE 50% WATER 50ML SYRINGE IV PRN (04:45)
[2021-08-09] MEDS: BLOOD SUGAR DIAGNOSTIC STRIP TEST SCH ×4 (06:18→20:48)
[2021-08-09 08:00] VITALS: BP 166/87
[2021-08-09] MEDS: CLONIDINE 0.2MG TABLET PO SCH ×2 (09:00→21:03)
[2021-08-09] MEDS: AMLODIPINE 10MG TABLET PO SCH (09:00)
[2021-08-09] MEDS: METOPROLOL TARTRATE 25MG TABLET PO SCH ×2 (09:00→19:02)
[2021-08-09] MEDS: THIAMINE HCL 100MG TABLET PO SCH (09:08)
[2021-08-09] MEDS: INSULIN LISPRO 100 UNITS/ML SUBCUT SCH ×4 (09:14→20:48)
[2021-08-09 12:00] VITALS: BP 185/94
[2021-08-09] MEDS ORDERED: BRIM10DR2 LEFTEYE (12:29)
[2021-08-09] MEDS: BRIMONIDINE 0.2% OPHTH DROPS 5ML LEFTEYE SCH ×2 (15:51→20:45)
[2021-08-09] MEDS: ENOXAPARIN 30MG/0.3ML SYR SUBCUT SCH (15:51)
[2021-08-09 18:00] VITALS: BP 109/82
[2021-08-09 20:00] VITALS: BP 132/80
[2021-08-10] VITALS (7 sets, daily range): BP systolic 131–186; BP diastolic 71–97
[2021-08-10] MEDS: BLOOD SUGAR DIAGNOSTIC STRIP TEST SCH ×4 (07:20→20:25)
[2021-08-10] MEDS: INSULIN LISPRO 100 UNITS/ML SUBCUT SCH ×4 (07:50→20:31)
[2021-08-10] MEDS: METOPROLOL TARTRATE 25MG TABLET PO SCH ×2 (09:00→17:00)
[2021-08-10] MEDS: CLONIDINE 0.2MG TABLET PO SCH ×2 (09:00→22:19)
[2021-08-10] MEDS: BRIMONIDINE 0.2% OPHTH DROPS 5ML LEFTEYE SCH ×2 (10:37→20:25)
[2021-08-10] MEDS: THIAMINE HCL 100MG TABLET PO SCH (10:37)
[2021-08-10] MEDS ORDERED: CLON0.2T PO (11:25)
[2021-08-10] MEDS: ENOXAPARIN 30MG/0.3ML SYR SUBCUT SCH (15:11)
[2021-08-10] MEDS: AMLODIPINE 10MG TABLET PO SCH (19:43)
[2021-08-11 00:06] VITALS: BP 129/79
[2021-08-11] MEDS ORDERED: ALTEPLASE 2MG/VIAL ITC ONE (00:45)
[2021-08-11 04:00] VITALS: BP 165/72
[2021-08-11] MEDS: BLOOD SUGAR DIAGNOSTIC STRIP TEST SCH ×2 (05:34→12:20)
[2021-08-11] MEDS: INSULIN LISPRO 100 UNITS/ML SUBCUT SCH ×2 (05:34→13:06)
[2021-08-11 08:00] VITALS: BP 143/85
[2021-08-11] MEDS: CLONIDINE 0.2MG TABLET PO SCH (09:00)
[2021-08-11] MEDS ORDERED: HEPARIN SODIUM 1,000 UNIT/1ML VIAL IV NR (09:30)
[2021-08-11] MEDS: BRIMONIDINE 0.2% OPHTH DROPS 5ML LEFTEYE SCH (10:10)
[2021-08-11 11:16] VITALS: BP 137/84
[2021-08-11] MEDS: AMLODIPINE 10MG TABLET PO SCH (11:34)
[2021-08-11] MEDS: THIAMINE HCL 100MG TABLET PO SCH (11:34)
[2021-08-11] MEDS: METOPROLOL TARTRATE 25MG TABLET PO SCH (11:34)
[2021-08-11 12:00] VITALS: BP 137/84
[2021-08-11] MEDS: ENOXAPARIN 30MG/0.3ML SYR SUBCUT SCH (15:00)
[2021-08-11 15:02] VITALS: BP 137/84
== END 2021-08-11 16:40 | disposition home or self-care (01) | DRG 470 ==
LOC: ER 11:21 → 6WST 14:31 → ENRESERV 20:28
PROVIDERS: ADMIT Internal Medicine; ATTEND Internal Medicine
PROC: 0JH63XZ Insertion of Tunneled Vascular Access Device into Chest Subcutaneous Tissue and Fascia, Percutaneous Approach (ICD-10-PCS; principal; 2021-08-08)
PROC: 02HV33Z Insertion of Infusion Device into Superior Vena Cava, Percutaneous Approach (ICD-10-PCS; 2021-08-08)
PROC: B5181ZA Fluoroscopy of Superior Vena Cava using Low Osmolar Contrast, Guidance (ICD-10-PCS; 2021-08-08)
PROC: B548ZZA Ultrasonography of Superior Vena Cava, Guidance (ICD-10-PCS; 2021-08-08)
PROC: 5A1D70Z Performance of Urinary Filtration, Intermittent, Less than 6 Hours Per Day (ICD-10-PCS; 2021-08-10)
DX: I12.0 Hypertensive chronic kidney disease with stage 5 chronic kidney disease or end stage renal disease (principal); N17.0 Acute kidney failure with tubular necrosis; E44.0 Moderate protein-calorie malnutrition; D63.8 Anemia in other chronic diseases classified elsewhere; E11.319 Type 2 diabetes mellitus with unspecified diabetic retinopathy without macular edema; N18.6 End stage renal disease; E11.22 Type 2 diabetes mellitus with diabetic chronic kidney disease; E87.8 Other disorders of electrolyte and fluid balance, not elsewhere classified; I16.0 Hypertensive urgency; E66.9 Obesity, unspecified; Z20.822 Contact with and (suspected) exposure to COVID-19; E78.00 Pure hypercholesterolemia, unspecified; Z90.49 Acquired absence of other specified parts of digestive tract; Z79.82 Long term (current) use of aspirin; Z79.899 Other long term (current) drug therapy; Z68.31 Body mass index [BMI] 31.0-31.9, adult; Z99.2 Dependence on renal dialysis
CPT/HCPCS: 36415; 36558; 71045; 76937; 77001; 80048; 80053; 81003; 82962; 83735; 83880; 84100; 84484; 85025; 86705; 86706; 86709; 86803; 87340; 87426; 93005; 99152; 99153; 99285; C1750; C1769; J0690; J1642; J1644; J1650; J1815; J1940; J3010; J3490; U0003; U0005; G0500

== ENCOUNTER 2021-10-31 06:51 | Inpatient (IN) | payer MEDICAID ==
[~2021-10-31] VITALS: Ht 162.6 cm; Wt 90.3 kg
[~2021-10-31 06:51] MED LIST changes: +BRIM10DR2 LEFTEYE; +CLON0.2T PO; -FURO-151 MT
[2021-10-31 09:02] LABS: BASOPHILS % 1.4 % (0.0-2.0); EOSINOPHILS % 8.5 % (0.0-5.0); HEMATOCRIT. 36.2 % (42.0-52.0); HEMOGLOBIN. 12.5 g/dL (14.0-18.0); LYMPHOCYTES % 34.3 % (20.0-50.0); MEAN CORPUSCULAR HEMOGLOBIN 29.5 pg (28.0-32.0); MEAN CORPUSCULAR VOLUME 85.4 fL (80.0-94.0); MEAN PLATELET VOLUME 8.3 fl (7.4-10.4); MONOCYTES % 5.9 % (2.0-8.0); NEUTROPHILS % 49.9 % (40.0-76.0); PLATELET 238 x1000/uL (130-400); RED BLOOD CELL COUNT 4.23 mill/uL (4.7-6.1); RED CELL DISTRIBUTION WIDTH 13.3 % (11.6-14.6)
[2021-10-31 09:12] LABS: INR 0.9; PROTHROMBIN TIME 10.2 sec (9.6-11.0)
[2021-10-31 09:33] LABS: CHLORIDE 105 mEq/L (98-107)
[2021-10-31] MEDS ORDERED: ACETAMINOPHEN 325MG TABLET PO PRN (18:30)
[2021-10-31] MEDS ORDERED: ONDANSETRON HCL 4MG/2ML INJ IV PRN (18:30)
[2021-10-31] MEDS: AMLODIPINE 10MG TABLET PO SCH (20:46)
[2021-11-01] VITALS (17 sets, daily range): BP systolic 132–184; BP diastolic 75–106
[2021-11-01] MEDS ORDERED: CALC667T6 PO (01:48)
[2021-11-01] MEDS ORDERED: GLIP10TA10 PO (01:48)
[2021-11-01] MEDS ORDERED: CLONIDINE 0.1MG TABLET PO PRN (02:15)
[2021-11-01] MEDS ORDERED: INSU100V34 SQ (02:35)
[2021-11-01] MEDS: AMLODIPINE 10MG TABLET PO SCH (08:27)
[2021-11-01] MEDS: CLONIDINE 0.1MG TABLET PO PRN (08:28)
[2021-11-01] MEDS ORDERED: HYDRALAZINE HCL 100MG TABLET PO NR (09:45)
[2021-11-01] MEDS ORDERED: DEXTROSE 50% WATER 50ML SYRINGE IV PRN (10:45)
[2021-11-01] MEDS: BLOOD SUGAR DIAGNOSTIC STRIP TEST SCH ×3 (11:40→21:00)
[2021-11-01] MEDS: INSULIN LISPRO 100 UNITS/ML SUBCUT SCH ×3 (12:31→21:00)
[2021-11-01] MEDS ORDERED: ALTEPLASE 2MG/VIAL ITC NR (13:00)
[2021-11-01] MEDS ORDERED: HEPARIN 1000 UNITS/ML 10ML ONE (13:30)
[2021-11-01] MEDS ORDERED: LIDOCAINE HCL 1% 20ML VIAL (Pyxis) INJ ONE (13:30)
[2021-11-01] MEDS ORDERED: CEFAZOLIN 1000MG PREMIX 50 ML IV SCH (15:00)
[2021-11-01] MEDS: HYDRALAZINE HCL 100MG TABLET PO SCH ×2 (15:54→22:00)
[2021-11-02] VITALS: BP 147/78
[2021-11-02 04:00] VITALS: BP 167/89
[2021-11-02] MEDS: CLONIDINE 0.1MG TABLET PO PRN (04:08)
[2021-11-02] MEDS: BLOOD SUGAR DIAGNOSTIC STRIP TEST SCH ×4 (06:41→20:53)
[2021-11-02] MEDS: INSULIN LISPRO 100 UNITS/ML SUBCUT SCH ×4 (06:49→20:36)
[2021-11-02] MEDS: HYDRALAZINE HCL 100MG TABLET PO SCH ×3 (06:52→21:07)
[2021-11-02 08:00] VITALS: BP 151/81
[2021-11-02] MEDS: AMLODIPINE 10MG TABLET PO SCH (09:59)
[2021-11-02 12:00] VITALS: BP 160/86
[2021-11-02 16:00] VITALS: BP 151/83
[2021-11-02 20:00] VITALS: BP 156/85
[2021-11-03] VITALS: BP 152/82
[2021-11-03] MEDS: CLONIDINE 0.1MG TABLET PO PRN (03:59)
[2021-11-03 04:00] VITALS: BP 170/88
[2021-11-03] MEDS: BLOOD SUGAR DIAGNOSTIC STRIP TEST SCH ×4 (06:09→20:29)
[2021-11-03] MEDS: HYDRALAZINE HCL 100MG TABLET PO SCH ×3 (06:09→21:17)
[2021-11-03] MEDS: INSULIN LISPRO 100 UNITS/ML SUBCUT SCH ×4 (06:09→20:29)
[2021-11-03 08:00] VITALS: BP 138/75
[2021-11-03] MEDS: AMLODIPINE 10MG TABLET PO SCH (08:39)
[2021-11-03 12:00] VITALS: BP 156/79
[2021-11-03] MEDS: ENOXAPARIN 30MG/0.3ML SYR SUBCUT SCH (14:07)
[2021-11-03 16:00] VITALS: BP 139/73
[2021-11-03] MEDS: LOSARTAN POTASSIUM 50 MG TABLET PO SCH (17:10)
[2021-11-03 20:00] VITALS: BP 158/82
[2021-11-03] MEDS ORDERED: ZOLPIDEM TARTRATE 5MG TABLET PO PRN (21:00)
[2021-11-03] MEDS: BENZONATATE 100MG CAPSULE PO PRN (21:17)
[2021-11-03] MEDS: INSULIN GLARGINE UD 100 UNITS/ML SYR SUBCUT SCH (22:11)
[2021-11-04] VITALS: BP 149/78
[2021-11-04 04:00] VITALS: BP 161/82
[2021-11-04] MEDS: BLOOD SUGAR DIAGNOSTIC STRIP TEST SCH ×4 (05:55→21:00)
[2021-11-04] MEDS: BENZONATATE 100MG CAPSULE PO PRN ×2 (06:11→13:18)
[2021-11-04] MEDS: HYDRALAZINE HCL 100MG TABLET PO SCH ×3 (06:11→21:54)
[2021-11-04] MEDS: INSULIN LISPRO 100 UNITS/ML SUBCUT SCH ×4 (06:12→21:00)
[2021-11-04 08:00] VITALS: BP 109/77
[2021-11-04] MEDS: LOSARTAN POTASSIUM 50 MG TABLET PO SCH ×2 (10:01→21:53)
[2021-11-04] MEDS: AMLODIPINE 10MG TABLET PO SCH (10:01)
[2021-11-04] MEDS: INSULIN GLARGINE UD 100 UNITS/ML SYR SUBCUT SCH ×2 (10:02→22:25)
[2021-11-04 12:00] VITALS: BP 154/73
[2021-11-04] MEDS: ENOXAPARIN 30MG/0.3ML SYR SUBCUT SCH (13:17)
[2021-11-04 16:00] VITALS: BP 137/54
[2021-11-04 20:00] VITALS: BP 154/87
[2021-11-05] VITALS: BP 159/84
[2021-11-05 04:00] VITALS: BP 141/87
[2021-11-05] MEDS: HYDRALAZINE HCL 100MG TABLET PO SCH ×3 (06:14→21:09)
[2021-11-05] MEDS: INSULIN LISPRO 100 UNITS/ML SUBCUT SCH ×4 (06:26→21:15)
[2021-11-05] MEDS: BLOOD SUGAR DIAGNOSTIC STRIP TEST SCH ×4 (06:26→21:16)
[2021-11-05 08:00] VITALS: BP 127/70
[2021-11-05] MEDS: LOSARTAN POTASSIUM 50 MG TABLET PO SCH ×2 (09:51→21:09)
[2021-11-05] MEDS: BENZONATATE 100MG CAPSULE PO PRN (09:51)
[2021-11-05] MEDS: AMLODIPINE 10MG TABLET PO SCH (09:55)
[2021-11-05] MEDS: INSULIN GLARGINE UD 100 UNITS/ML SYR SUBCUT SCH ×2 (09:56→21:38)
[2021-11-05 12:00] VITALS: BP 151/84
[2021-11-05] MEDS: ENOXAPARIN 30MG/0.3ML SYR SUBCUT SCH (13:38)
[2021-11-05 16:00] VITALS: BP 111/81
[2021-11-05 20:00] VITALS: BP 145/81
[2021-11-06] VITALS: BP 138/78
[2021-11-06 04:00] VITALS: BP 128/82
[2021-11-06] MEDS: HYDRALAZINE HCL 100MG TABLET PO SCH (05:42)
[2021-11-06] MEDS: BLOOD SUGAR DIAGNOSTIC STRIP TEST SCH ×2 (06:00→11:40)
[2021-11-06] MEDS: INSULIN LISPRO 100 UNITS/ML SUBCUT SCH ×2 (06:00→12:38)
[2021-11-06 08:00] VITALS: BP 134/69
[2021-11-06] MEDS: LOSARTAN POTASSIUM 50 MG TABLET PO SCH (08:53)
[2021-11-06] MEDS: AMLODIPINE 10MG TABLET PO SCH (08:53)
[2021-11-06] MEDS: INSULIN GLARGINE UD 100 UNITS/ML SYR SUBCUT SCH (10:50)
[2021-11-06 12:00] VITALS: BP 162/86
[2021-11-06 12:16] VITALS: BP 134/69
== END 2021-11-06 15:00 | disposition home or self-care (01) | DRG 466 ==
LOC: ER 06:51 → 7EST 16:45 → EDBEDREQ 17:05
PROVIDERS: ADMIT Internal Medicine; ATTEND Internal Medicine
PROC: 05PYX3Z Removal of Infusion Device from Upper Vein, External Approach (ICD-10-PCS; 2021-11-01)
PROC: 02HV33Z Insertion of Infusion Device into Superior Vena Cava, Percutaneous Approach (ICD-10-PCS; 2021-11-01)
PROC: B5181ZA Fluoroscopy of Superior Vena Cava using Low Osmolar Contrast, Guidance (ICD-10-PCS; 2021-11-01)
PROC: 5A1D70Z Performance of Urinary Filtration, Intermittent, Less than 6 Hours Per Day (ICD-10-PCS; principal; 2021-11-06)
DX: T82.41XA Breakdown (mechanical) of vascular dialysis catheter, initial encounter (principal); N18.6 End stage renal disease; U07.1 COVID-19; I13.2 Hypertensive heart and chronic kidney disease with heart failure and with stage 5 chronic kidney disease, or end stage renal disease; E44.0 Moderate protein-calorie malnutrition; E11.22 Type 2 diabetes mellitus with diabetic chronic kidney disease; D64.9 Anemia, unspecified; E78.00 Pure hypercholesterolemia, unspecified; Y71.2 Prosthetic and other implants, materials and accessory cardiovascular devices associated with adverse incidents; E78.5 Hyperlipidemia, unspecified; Z90.49 Acquired absence of other specified parts of digestive tract; Z95.0 Presence of cardiac pacemaker; Z99.2 Dependence on renal dialysis; Z91.15 Patient's noncompliance with renal dialysis; Y92.89 Other specified places as the place of occurrence of the external cause; Z79.899 Other long term (current) drug therapy; Z68.34 Body mass index [BMI] 34.0-34.9, adult; Z79.82 Long term (current) use of aspirin
CPT/HCPCS: 36415; 36558; 71045; 77001; 80053; 80076; 82962; 83036; 85025; 86705; 87426; 99285; C1750; C1769; J0690; J1644; J1650; J1815; J2997; J3490; J7040; U0003; U0005

== ENCOUNTER 2022-11-11 04:24 | Emergency (ER) | payer MEDICAID ==
[~2022-11-11] VITALS: Ht 165.1 cm; Wt 88.0 kg
[~2022-11-11 04:24] MED LIST changes: +CALC667T6 PO; +GLIP10TA10 PO; +INSU100V34 SQ
[2022-11-11 04:35] VITALS: BP 199/105
[2022-11-11 05:24] LABS: BASOPHILS % 1.1 % (0.0-2.0); EOSINOPHILS % 7.3 % (0.0-5.0); HEMATOCRIT. 26.4 % (42.0-52.0); HEMOGLOBIN. 9.5 g/dL (14.0-18.0); LYMPHOCYTES % 28.8 % (20.0-50.0); MEAN CORPUSCULAR HEMOGLOBIN 30.9 pg (28.0-32.0); MEAN CORPUSCULAR VOLUME 85.7 fL (80.0-94.0); MEAN PLATELET VOLUME 8.7 fl (7.4-10.4); MONOCYTES % 7.7 % (2.0-8.0); NEUTROPHILS % 55.1 % (40.0-76.0); PLATELET 219 x1000/uL (130-400); RED BLOOD CELL COUNT 3.08 mill/uL (4.7-6.1); RED CELL DISTRIBUTION WIDTH 13.7 % (11.6-14.6)
[2022-11-11 05:31] LABS: CHLORIDE 96 mEq/L (98-107)
== END 2022-11-11 14:49 | disposition left against medical advice (07) ==
LOC: ER 04:24
DX: R06.03 Acute respiratory distress (principal); N18.9 Chronic kidney disease, unspecified; Z13.9 Encounter for screening, unspecified; Z20.822 Contact with and (suspected) exposure to COVID-19
CPT/HCPCS: 36415; 70450; 71045; 80053; 83880; 84484; 85025; 87426; 93005; 99285; C9803

== ENCOUNTER 2022-12-19 15:56 | Emergency (ER) | payer MEDICAID ==
[~2022-12-19] VITALS: Ht 165.1 cm; Wt 85.0 kg
[2022-12-19 15:59] VITALS: BP 182/93
[2022-12-19 17:40] LABS: CHLORIDE 97 mEq/L (98-107)
[2022-12-19 17:43] LABS: BASOPHILS % 0.9 % (0.0-2.0); EOSINOPHILS % 7.8 % (0.0-5.0); HEMATOCRIT. 25.3 % (42.0-52.0); HEMOGLOBIN. 8.8 g/dL (14.0-18.0); LYMPHOCYTES % 17.5 % (20.0-50.0); MEAN CORPUSCULAR HEMOGLOBIN 31.3 pg (28.0-32.0); MEAN CORPUSCULAR VOLUME 90.3 fL (80.0-94.0); MEAN PLATELET VOLUME 8.5 fl (7.4-10.4); MONOCYTES % 7.6 % (2.0-8.0); NEUTROPHILS % 66.2 % (40.0-76.0); PLATELET 204 x1000/uL (130-400); RED CELL DISTRIBUTION WIDTH 15.6 % (11.6-14.6)
[2022-12-19 18:04] LABS: PROTHROMBIN TIME 10.6 sec (9.6-11.0)
== END 2022-12-19 18:53 | disposition home or self-care (01) ==
LOC: ER 15:56
DX: E11.22 Type 2 diabetes mellitus with diabetic chronic kidney disease (principal); I12.0 Hypertensive chronic kidney disease with stage 5 chronic kidney disease or end stage renal disease; N18.6 End stage renal disease; D64.9 Anemia, unspecified; Z79.899 Other long term (current) drug therapy; E78.00 Pure hypercholesterolemia, unspecified; Z90.49 Acquired absence of other specified parts of digestive tract; Z79.82 Long term (current) use of aspirin
CPT/HCPCS: 36415; 71045; 80053; 85025; 86850; 86900; 93005; 99285

== ENCOUNTER 2023-12-14 14:07 | Emergency (ER) | payer MEDICAID ==
[~2023-12-14] VITALS: Ht 165.1 cm; Wt 86.0 kg
[2023-12-14 14:14] VITALS: O2SAT 98
[2023-12-14] MEDS ORDERED: HYDR28GE TP (15:25)
[2023-12-14] MEDS ORDERED: CEPH500T MT (15:25)
[2023-12-14 15:53] VITALS: BP 134/73; PULSE 68; RESP 12; TEMP 97.9
== END 2023-12-14 15:54 | disposition home or self-care (01) ==
LOC: ER 14:07
DX: R21 Rash and other nonspecific skin eruption (principal); E11.9 Type 2 diabetes mellitus without complications; I13.0 Hypertensive heart and chronic kidney disease with heart failure and stage 1 through stage 4 chronic kidney disease, or unspecified chronic kidney disease; N18.9 Chronic kidney disease, unspecified; Z90.49 Acquired absence of other specified parts of digestive tract; Z98.890 Other specified postprocedural states; Z99.2 Dependence on renal dialysis
CPT/HCPCS: 99283

== ENCOUNTER 2024-01-16 21:04 | Emergency (ER) | payer MEDICAID ==
[~2024-01-16] VITALS: Ht 165.1 cm; Wt 85.0 kg
[~2024-01-16 21:04] MED LIST changes: +CEPH500T MT; -HYDR-4135 PO; +HYDR28GE5 TP; +HYDR50TA39 PO
[2024-01-16 22:13] VITALS: BP 131/88; PULSE 70; RESP 16; TEMP 98.3; O2SAT 99
[2024-01-16] MEDS ORDERED: MUPI1OIN4 TP (23:11)
[2024-01-16 23:24] LABS: CLARITY URINE CLOUDY (CLEAR); COLOR URINE YELLOW (YELLOW)
[2024-01-16 23:25] LABS: GLUCOSE URINE NEGATIVE (NEGATIVE); KETONES URINE TRACE (NEGATIVE); NITRITE URINE NEGATIVE (NEGATIVE); OCCULT BLOOD URINE 3+ (NEGATIVE); PROTEIN URINE 2+ (NEGATIVE); UROBILINOGEN URINE 0.2 E.U./dL (0.2-1.0)
[2024-01-16 23:26] LABS: LEUKOCYTE ESTERASE URINE TRACE (NEGATIVE)
[2024-01-16] MEDS ORDERED: PENICILLIN G BENZATHINE 1,200,000 UNITS/2ML SYR IM ONE (23:30)
[2024-01-17 00:21] LABS: BACTERIA URINE TRACE
[2024-01-17 00:22] LABS: FINE GRANULAR CASTS URINE 0-5 /lpf
== END 2024-01-17 00:43 | disposition home or self-care (01) ==
LOC: ER 21:04
DX: N48.1 Balanitis (principal); I12.0 Hypertensive chronic kidney disease with stage 5 chronic kidney disease or end stage renal disease; E11.22 Type 2 diabetes mellitus with diabetic chronic kidney disease; N18.6 End stage renal disease; Z99.2 Dependence on renal dialysis; Z95.0 Presence of cardiac pacemaker
CPT/HCPCS: 99283; 86592; 81003; 82962; 87086; J0561